=== PATIENT | female | born 1990 | race Caucasian/White ===

== ENCOUNTER 2019-08-24 16:54 | Inpatient (IN) ==
[2019-08-24] MEDS ORDERED: ceFAZolin SODIUM 1 GM VIAL IV PRN (17:00)
[2019-08-24] MEDS ORDERED: OXYTOCIN 20 UNITS in RINGER'S SOLUTION,LACTATED 1,000 ML IV ONE (17:17)
[2019-08-24] MEDS ORDERED: RINGER'S SOLUTION,LACTATED 1,000 ML IV PRN (17:17)
[2019-08-24] MEDS ORDERED: ceFAZolin SODIUM 2 GM in DEXTROSE 5 % IN WATER 50 ML IV PRN ×2 (17:23)
[2019-08-24] MEDS ORDERED: diphenhydrAMINE HCL 25 MG CAPSULE PO PRN (17:24)
[2019-08-24] MEDS ORDERED: BISACODYL 10 MG SUPP.RECT RC PRN (17:24)
[2019-08-24] MEDS ORDERED: SENNOSIDES 8.6 MG TABLET PO PRN (17:24)
[2019-08-24] MEDS ORDERED: HYDROcodone/ACETAMINOPHEN 1 EACH TABLET PO PRN ×2 (17:24)
[2019-08-24] MEDS ORDERED: KETOROLAC TROMETHAMINE 30 MG/ML VIAL IV PRN (17:24)
[2019-08-24] MEDS ORDERED: ONDANSETRON HCL/PF 2 MG/ML VIAL IV PRN (17:24)
[2019-08-24] MEDS ORDERED: SIMETHICONE 80 MG TAB.CHEW PO PRN (17:24)
--- NOTE | 2019-08-24 17:24 | PN ---
Progess Note - Interim Date: 08/24/19 Time: 17:18 Narrative: 08/24/19 17:18 Please refer to office visit 08/22/2019 for history and physical. The patient presented today and reports two episodes of small amounts of loss of fluid yesterday at around 9 PM and 10 PM last night. She then soaked her underwear today at around 130 PM. She is grossly ruptured and nitrazine is positive. She is GBS positive so will give Ancef 2 grams now. Proceed with repeat delivery. All risks, benefits, and alternatives of the procedure were explained to the patient and the patient consented the procedure.
[2019-08-24] MEDS ORDERED: BUPIVACAINE HCL/EPINEPHRINE 50 ML VIAL IJ ONE (17:31)
[2019-08-24] MEDS ORDERED: EPINEPHrine 1 MG/ML AMPUL ONE (17:32)
--- NOTE | 2019-08-24 17:50 | ANES ---
Anesthesia Pre Procedure Eval HOME MEDICATIONS Vits96/Iron Fum/Folic [ S] 1 tab PO DAILY 08/24/19 [Last Taken Unknown] Allergies/Adverse Reactions: Allergies Allergy/AdvReac Type Severity Reaction Status Date / Time No Known Allergies Allergy Verified 08/24/19 17:20 - Planned Procedure Planned Procedure: Repeat C-Sect Medication List Reviewed:: Yes Allergies Verified: Yes Medical History (Last Reviewed 08/24/19 @ 17:50 by Nikhil Burns CRNA) Otitis media Onset Date: Unknown several as a child Surgical History (Last Reviewed 08/24/19 @ 17:50 by Nikhil Burns CRNA) History of delivery, currently (Acute) The patient declines TOLAC. Repeat delivery at 39 weeks delivery delivered Onset Date: ~11/20/07 Tympanic tube insertion Onset Date: Unknown bilateral, as a child Family History (Last Reviewed 08/24/19 @ 17:50 by Nikhil Burns CRNA) Mother Huovz-Ebnnmqcwd-Mihng (WPW) pattern Endometriosis H/O: hysterectomy Father Alive and well Grandmother Cancer maternal-in sinuses Grandmother Multiple sclerosis paternal Myocardial infarction x2 - Family Anesthesia History Family History:: no untoward family reactions to anesthesia - Airway/Neck/Teeth Within Normal Limits:: Yes Teeth Condition: intact Neck Exam: full range of motion Mallampatti Score: 2 Thyromental (T-M) distance: > 6 cm Mandibulo Hyoid distance: > 3 cm - Respiratory Respiratory Physical: lungs clear Smoking Status: Current every day smoker Discussed smoking cessation including day of surgery: Yes Sleep Apnea currently treated: No Sleep Apnea by current assessment: No - Cardiovascular Tolerate Activity: Good Heart Sounds: S1 & S2, Regular - Gastrointestinal NPO since: 1529 - Anesthesia Assessment and Plan ASA Class: PS, II, E Anesthesia Type Plan: Spinal - bilat tap block
[2019-08-24] MEDS ORDERED: ONDANSETRON HCL/PF 2 MG/ML VIAL ONE (19:04)
[2019-08-24 19:15] LABS: Cocaine Ur Negative (NEGATIVE); Urine Barbiturate Negative (NEGATIVE); Urine Benzodiazepines Negative (NEGATIVE); Urine Opiates Negative (NEGATIVE); Urine PCP Negative (NEGATIVE); Urine THC Negative (NEGATIVE)
--- NOTE | 2019-08-24 19:45 | ANES ---
Post Anesthesia Assessment - Vital Signs Vitals: Last Vital Signs Temp 36.1 C 08/24/19 19:25 Pulse 91 08/24/19 19:35 Resp 16 08/24/19 19:35 BP 130/76 08/24/19 19:35 Pulse Ox 99 08/24/19 19:35 Airway Patency: Normal - Mental Status Level Of Consciousness: Awake - Pain Level Pain Score: 3 - N/V Assessment Nausea/Vomiting Presence: None Dehydration:: No
--- NOTE | 2019-08-24 19:45 | ANES ---
Post Anesthesia Discharge - Transfer of Care Transfer of Care handoff given to nurse: Yes - Discharge from PACU Discharge from PACU when meets criteria: Yes
--- NOTE | 2019-08-24 19:48 | ANES ---
Anesthesia Procedure Note Procedure Note: ANESTHESIA PROCEDURE NOTE Date of procedure: 08/24/2019. Time of procedure: 1929. Performed by: Niraj Burns CRNA Paving Plant Operator: Caitlin Puri RN . Preprocedure diagnosis: Repeat section. Post procedure diagnosis: Same. Procedure: Ultrasound-guided bilateral tap block Indications: Postoperative analgesia. Findings: The patient was placed in a supine position in the PACU. Patient's right abdominal wall was prepped with ChloraPrep. Ultrasound was utilized to identify the fascial layer between the internal oblique and trans-abdominus muscles. A 20-gauge 4 inch regional block needle was advanced under ultrasound guidance until tip of needle was positioned just distal to fascial layer. 20 mL of 0.25% Marcaine with epinephrine 1-200,000 was injected with adequate spread of local anesthesia noted. The procedure was then repeated on the patient's left side. EBL: Minimal. Fluids: N/A. Specimen: N/A. Post procedure condition: The patient tolerated the procedure well. No complications were noted. Thank you for this consultation Niraj Burns CRNA
--- NOTE | 2019-08-24 20:13 | OR ---
Operative Report - Dictated Report Narrative: Date of delivery: 08/24/2019 Time of delivery: 1850 Gender: male weight: 3057 grams APGARS: 9 Preoperative diagnosis: IUP at 37w 1d, history of delivery x1, metaamphetamine use, PROM Postoperative diagnosis: same in addition to terminal meconium Procedure: repeat delivery Surgeon: Dr. Christine Anesthesia: spinal Description of the procedure: The patient was taken to the operating room where spinal anesthesia was induced. She was then prepped and draped in the supine position in the standard surgical fashion. Attention was then turned to the abdomen. A Pfannestiel skin incision was made. The incision was carried through the subcutaneous tissue. The fascia was incised in the midline. The fascial incision was extended sharply. The fascia was grasped with Shilpa clamps and it was dissected from the underlying rectus muscles. An incisional hernia of the omentum was noted. The rectus muscles were in the midline. The peritoneum was entered bluntly with good visualization of the bladder and bowel. The peritoneal incision was extended bluntly. A large Desmond retractor was placed. The uterus was incised in a low transverse fashion. The incision was carried through an anterior placenta. The uterine incision was extended bluntly. The head was delivered without difficulty. The shoulders delivered without difficulty followed by the rest of the . The cord was clamped and cut and the infant was handed off to the attending pediatric staff. Cord blood was collected. The placenta was delivered by expression and appeared intact. The uterus was cleared of all clots and debris. The uterine incision was closed with 0-vicryl with single layer closure. An additional suture was placed in the left corner of the incision for additional hemostasis. Additional hemostasis was obtained with electrocautery. The Desmond retractor was removed from the abdomen and the uterine incision was reinspected and appeared hemostatic. The rectus muscles and subfascial tissue were inspected for hemostasis. These were hemostatic. The fascia was closed with 1-0 vicryl. The subcutaneous tissue was irrigated and made hemostatic. The skin incision was closed with 3-0 monocryl on a Garth needle. [place] mays was placed over the incision. A dressing was applied over the incision. All sponge, lap, and needle counts were correct. The patient tolerated the procedure well. She was transferred to the recovery room in stable condition. EBL: 500 mL Complications: none Specimens: placenta to pathology, cord segment sent due to metaamphetamine use History for MU Definition: * The number of deliveries resulting in a live the patient experienced prior to current hospitalization * The previous delivery of live twins or any live multiple gestation is considered one live event. *If primagravida or nulliparous is documented select zero for the number of previous live births. Live Events: 1
[2019-08-24] MEDS: IBUPROFEN 800 MG TABLET PO PRN (20:14)
[2019-08-24] MEDS: DOCUSATE SODIUM 100 MG CAPSULE PO SCH (20:14)
[2019-08-24] MEDS: oxyCODONE HCL/ACETAMINOPHEN 1 TAB TABLET PO PRN (21:27)
[2019-08-25] MEDS: oxyCODONE HCL/ACETAMINOPHEN 1 TAB TABLET PO PRN ×4 (00:42→16:41)
[2019-08-25] MEDS: IBUPROFEN 800 MG TABLET PO PRN ×3 (05:40→20:03)
--- NOTE | 2019-08-25 09:01 | PN ---
Subjective - Date and Time Seen Date: 08/25/19 Time: 08:59 Subjective Narrative: Patient without complaints Objective Objective Narrative: See vitals signs - Review of Systems Generalized/Overall Review: Reports: No Symptoms Reported Misc: All systems neg except as marked - Vitals Vitals: Last Vital Signs Temp 36.5 C 08/25/19 07:46 Pulse 88 08/25/19 07:46 Resp 18 08/25/19 07:46 BP 125/70 08/25/19 07:46 Pulse Ox 98 08/25/19 07:46 - Abnormal Lab Findings Abnormal Lab Findings: Abnormal Lab Results 08/24/19 Range/Units 18:01 Urine Amphetamine Positive H (NEGATIVE) - Exam Constitutional: Present: Alert, Oriented x3, Cooperative, No distress Abdomen: Present: soft, nontender, nondistended - incision c/d/i Extremity: Present: non-tender, no calf tenderness Skin Exam: Present: normal color, warm/dry, no cyanosis Appearance: Present: appropriate appearance Eye contact: Present: cooperative Thoughts: Present: normal thought pattern Cauti Physician Documentation - Urinary Catheter Management 2-way Urethral Urethral Indwelling: No Date of Insertion: 08/24/19 Time of Insertion: 18:35 Date of Removal: 08/25/19 Time of Removal: 06:50 Assessment/Plan Plan Narrative: POD 1 s/p delivery Doing well Discharge POD 3
[2019-08-25] MEDS: DOCUSATE SODIUM 100 MG CAPSULE PO SCH ×2 (10:20→20:03)
[2019-08-26] MEDS: IBUPROFEN 800 MG TABLET PO PRN ×3 (04:44→23:14)
[2019-08-26] MEDS: oxyCODONE HCL/ACETAMINOPHEN 1 TAB TABLET PO PRN ×2 (04:44→08:57)
[2019-08-26] MEDS: DOCUSATE SODIUM 100 MG CAPSULE PO SCH ×2 (08:57→23:14)
--- NOTE | 2019-08-26 09:54 | PN ---
Subjective - Date and Time Seen Date: 08/26/19 Time: 09:53 Subjective Narrative: Patient without complaints Objective Objective Narrative: See vitals signs - Review of Systems Generalized/Overall Review: Reports: No Symptoms Reported Misc: All systems neg except as marked - Vitals Vitals: Last Vital Signs Temp 36.7 C 08/26/19 02:00 Pulse 85 08/26/19 02:00 Resp 18 08/26/19 02:00 BP 125/68 08/26/19 02:00 Pulse Ox 98 08/26/19 02:00 - Exam Constitutional: Present: Alert, Oriented x3, Cooperative, No distress Abdomen: Present: soft, nontender, nondistended - incision c/d/i Extremity: Present: non-tender, no calf tenderness Skin Exam: Present: normal color, warm/dry, no cyanosis Appearance: Present: appropriate appearance Eye contact: Present: cooperative Thoughts: Present: normal thought pattern Cauti Physician Documentation - Urinary Catheter Management 2-way Urethral Urethral Indwelling: No Date of Insertion: 08/24/19 Time of Insertion: 18:35 Date of Removal: 08/25/19 Time of Removal: 06:50 Assessment/Plan Plan Narrative: POD 2 s/p repeat delivery Doing well Discharge tomorrow
[2019-08-27] MEDS: DOCUSATE SODIUM 100 MG CAPSULE PO SCH (08:49)
[2019-08-27] MEDS: IBUPROFEN 800 MG TABLET PO PRN (08:49)
[2019-08-27 09:14] VITALS: BP 138/65
--- NOTE | 2019-08-27 10:05 | PN ---
Subjective - Date and Time Seen Date: 08/27/19 Time: 10:03 Subjective Narrative: Patient without complaints Objective Objective Narrative: See vitals signs - Review of Systems Generalized/Overall Review: Reports: No Symptoms Reported Misc: All systems neg except as marked - Vitals Vitals: Last Vital Signs Temp 36.2 C 08/27/19 09:13 Pulse 90 08/27/19 09:13 Resp 16 08/27/19 09:13 BP 138/65 08/27/19 09:13 Pulse Ox 99 08/27/19 09:13 - Exam Constitutional: Present: Alert, Oriented x3, Cooperative, No distress ENT Exam: Present: hearing grossly normal Abdomen: Present: soft, nontender, nondistended - incision c/d/i Extremity: Present: non-tender, no calf tenderness Skin Exam: Present: normal color, warm/dry, no cyanosis Appearance: Present: appropriate appearance Eye contact: Present: cooperative Thoughts: Present: normal thought pattern Cauti Physician Documentation - Urinary Catheter Management 2-way Urethral Urethral Indwelling: No Date of Insertion: 08/24/19 Time of Insertion: 18:35 Date of Removal: 08/25/19 Time of Removal: 06:50 Assessment/Plan Plan Narrative: POD 3 s/p repeat delivery Doing well Discharge home Follow-up in 2 weeks for an incision check or sooner for any other concerns
== END 2019-08-27 13:25 | disposition home or self-care (01) | DRG 787 ==
LOC: OBCLINIC 16:54 → OB 17:16
PROVIDERS: ADMIT Obstetrics & Gynecology; ATTEND Obstetrics & Gynecology
CPT/HCPCS: 59025; 80307; 86850; 88307; J2405